=== PATIENT | male | born 1965 | race Caucasian/White ===

== ENCOUNTER 2024-04-06 11:27 | Outpatient (OUT) | payer OTHER, SELFPAY ==
--- NOTE | 2024-04-06 | XR_ITS ---
[address] [address] Patient Name: LIAM GLASER MRN: [id number] date: 1965 Sex: M Assigned Patient Location: Current Patient Location: Accession/Order Number: [id number] Exam Date: 04/06/2024 11:28 Report Date: 04/06/2024 12:06 At the request of: LILI APONTE Procedure: XR ankle BAILEE min 3V EXAMINATION: XR ankle BAILEE min 3V, XR foot BAILEE min 3V HISTORY: BILATERAL ANKLE PAIN COMPARISON: No relevant comparison available. FINDINGS: RIGHT FINDINGS: BONES: No acute fracture or dislocation. Partial pes planus with plantar rotation of the hindfoot in relation to the midfoot. Moderate degenerative changes with joint space narrowing and marginal osteophyte formation. Enthesopathic spurring of the calcaneus at the Achilles insertion r. 2.1 area of sclerosis in the distal posterior tibia with a narrow zone of transition, a benign process is favored SOFT TISSUES: Achilles tendon calcification OTHER: Negative. LEFT FINDINGS: BONES: No acute fracture or dislocation. Moderate enthesopathic spurring of the calcaneus at the Achilles insertion. Mild degenerative changes. SOFT TISSUES: Negative. No visible soft tissue swelling. OTHER: Negative. XR/XR ankle BAILEE min 3V IMPRESSION: RIGHT CONCLUSION: Moderate degenerative change LEFT CONCLUSION: Mild degenerative change Electronically authenticated by: KENDAL SANTOS Date: 04/06/2024 12:06
--- NOTE | 2024-04-06 | XR_ITS ---
[address] [address] Patient Name: LIAM GLASER MRN: [id number] date: 1965 Sex: M Assigned Patient Location: Current Patient Location: Accession/Order Number: [id number] Exam Date: 04/06/2024 11:28 Report Date: 04/06/2024 12:06 At the request of: LILI APONTE Procedure: XR foot BAILEE min 3V EXAMINATION: XR ankle BAILEE min 3V, XR foot BAILEE min 3V HISTORY: BILATERAL ANKLE PAIN COMPARISON: No relevant comparison available. FINDINGS: RIGHT FINDINGS: BONES: No acute fracture or dislocation. Partial pes planus with plantar rotation of the hindfoot in relation to the midfoot. Moderate degenerative changes with joint space narrowing and marginal osteophyte formation. Enthesopathic spurring of the calcaneus at the Achilles insertion r. 2.1 area of sclerosis in the distal posterior tibia with a narrow zone of transition, a benign process is favored SOFT TISSUES: Achilles tendon calcification OTHER: Negative. LEFT FINDINGS: BONES: No acute fracture or dislocation. Moderate enthesopathic spurring of the calcaneus at the Achilles insertion. Mild degenerative changes. SOFT TISSUES: Negative. No visible soft tissue swelling. OTHER: Negative. XR/XR foot BAILEE min 3V IMPRESSION: RIGHT CONCLUSION: Moderate degenerative change LEFT CONCLUSION: Mild degenerative change Electronically authenticated by: KENDAL SANTOS Date: 04/06/2024 12:06
== END 2024-04-06 11:28 | disposition home or self-care (01) ==
PROVIDERS: PCP Family Medicine; Visit Provider Podiatrist Foot & Ankle Surgery
DX: M25.572 Pain in left ankle and joints of left foot (principal); M25.571 Pain in right ankle and joints of right foot; M79.672 Pain in left foot; M79.671 Pain in right foot; M19.072 Primary osteoarthritis, left ankle and foot; M19.071 Primary osteoarthritis, right ankle and foot
CPT/HCPCS: 73610; 73630

== ENCOUNTER 2024-04-08 08:55 | Outpatient (RCR) | payer OTHER, SELFPAY | END 2024-04-09 16:16 | disposition home or self-care (01) | LOC: PT 08:55 | PROVIDERS: PCP Family Medicine; Visit Provider Podiatrist Foot & Ankle Surgery | DX: M76.821 Posterior tibial tendinitis, right leg (principal); R26.89 Other abnormalities of gait and mobility; R26.9 Unspecified abnormalities of gait and mobility | CPT/HCPCS: 97110; 97162 ==

== ENCOUNTER 2024-11-08 14:42 | Outpatient (OUT) | payer OTHER, SELFPAY ==
--- NOTE | 2024-11-08 | XR_ITS ---
The [address] [address] Patient Name: LIAM GLASER MRN: [id number] date: 1965 Sex: M Assigned Patient Location: Current Patient Location: Accession/Order Number: [id number] Exam Date: 11/08/2024 14:44 Report Date: 11/08/2024 15:19 At the request of: CAM LEE Procedure: XR knee BAILEE 4V EXAMINATION: XR knee BAILEE 4V HISTORY: BILATERAL KNEE PAIN COMPARISON: No relevant comparison available. FINDINGS: RIGHT FINDINGS: BONES: Mild osteoarthropathy with marginal osteophyte formation. Mild narrowing of medial joint space. Chondrocalcinosis SOFT TISSUES: Negative. No visible soft tissue swelling. OTHER: Negative. LEFT FINDINGS: BONES: Moderate tricompartmental osteoarthropathy with moderate narrowing medial joint space. Marginal osteophyte formation SOFT TISSUES: Negative. No visible soft tissue swelling. OTHER: Negative. XR/XR knee BAILEE 4V IMPRESSION: Mild right and moderate left knee osteoarthritis. Electronically authenticated by: KENDAL SANTOS Date: 11/08/2024 15:19
== END 2024-11-08 14:43 | disposition home or self-care (01) ==
LOC: EC 14:43
PROVIDERS: PCP Family Medicine; Visit Provider Student in an Organized Health Care Education/Training Program
DX: M25.562 Pain in left knee (principal); M25.561 Pain in right knee; M17.0 Bilateral primary osteoarthritis of knee
CPT/HCPCS: 73564